=== PATIENT | male | born 1955 | race Caucasian/White ===

== ENCOUNTER 2018-11-20 09:47 | Emergency (ER) | payer MEDICARE, OTHER ==
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
== END 2018-11-20 11:35 | disposition home or self-care (01) ==
LOC: JP.ED 09:47
DX: F41.9 Anxiety disorder, unspecified (principal); E11.9 Type 2 diabetes mellitus without complications; Z88.0 Allergy status to penicillin; Z88.8 Allergy status to other drugs, medicaments and biological substances; Z79.899 Other long term (current) drug therapy; Z87.891 Personal history of nicotine dependence; Z79.84 Long term (current) use of oral hypoglycemic drugs
CPT/HCPCS: 99283

== ENCOUNTER 2020-01-05 15:26 | Observation (INO) | payer MEDICARE, OTHER ==
[2020-01-05] MEDS ORDERED: Sodium Chloride 0.9% 1,000 ML IV SCH ×2 (16:00→16:45)
[2020-01-05] MEDS ORDERED: Insulin Regular, Human 100 Units/ML 3 ML Vial IVPUSH ONE (16:43)
[2020-01-05] MEDS ORDERED: Insulin Regular, Human 100 Units/ML 3 ML Vial SUBCUT ONE (16:44)
--- NOTE | 2020-01-05 16:50 | EDM.PDOC ---
ED HPI GENERAL MEDICAL PROBLEM - General Chief Complaint: General Stated Complaint: BLOOD SUGAR Time Seen by Provider: 01/05/20 15:55 Source of Information: Reports: Patient History Limitations: Reports: No Limitations - History of Present Illness INITIAL COMMENTS - FREE TEXT/NARRATIVE: pt was seen at the clinic and was feeling mildly confused. He was very thirsty. He was found to have a bs greater than 500. He has not been checking his bs. He did not have chest pain. He has had slight burning on urination. Onset: Gradual, Other ( he has felt mildly confused for the past few days. ) Duration: Day(s): Location: Reports: Generalized, Other (markedly elevated bs. ) Associated Symptoms: Reports: Diaphoresis, Weakness, Other (high bs. ) - Related Data Allergies Allergy/AdvReac Type Severity Reaction Status Date / Time haloperidol [From Haldol] Allergy Mild Hyperactivi Verified 11/20/18 10:14 ty Penicillins Allergy Mild Cannot Verified 11/20/18 10:13 Remember Home Meds: Home Meds DULoxetine HCl [Cymbalta] 60 mg PO DAILY 11/20/18 [History] Escitalopram Oxalate 10 mg PO DAILY 11/20/18 [History] Lisinopril 20 mg PO BID 11/20/18 [History] [place] Carbonate 300 mg PO DAILY 11/20/18 [History] OLANZapine [Olanzapine] 2.5 mg PO DAILY 11/20/18 [History] OXcarbazepine [Oxcarbazepine] 150 mg PO BEDTIME 11/20/18 [History] cloNIDine HCL [Clonidine HCl] 0.2 mg PO BEDTIME 01/05/20 [History] metFORMIN HCl [Metformin HCl] 1,000 mg PO BIDAC #60 tablet 01/06/20 [Rx] Past Medical History Cardiovascular History: Reports: High Cholesterol, Hypertension Psychiatric History: Reports: Anxiety, Bipolar, Emotional Problems, Panic Attack Endocrine/Metabolic History: Reports: Diabetes, Type II - Past Surgical History GI Surgical History: Reports: Colonoscopy Social & Family History - Caffeine Use Caffeine Use: Reports: Coffee - Recreational Drug Use Recreational Drug Use: No ED ROS GENERAL - Review of Systems Review Of Systems: See Below Constitutional: Reports: Weakness HEENT: Reports: No Symptoms Respiratory: Reports: No Symptoms Cardiovascular: Reports: No Symptoms Endocrine: Reports: High Glucose GI/Abdominal: Reports: No Symptoms : Reports: Dysuria Musculoskeletal: Reports: No Symptoms Skin: Reports: No Symptoms Neurological: Reports: Confusion Psychiatric: Reports: Depression ED EXAM, GENERAL - Physical Exam Exam: See Below Free Text/Narrative:: pt arrived at the clinic with a elevated bs and he was clearly confused. He has fwlt vague for several days at home he does not take his bs at home. Exam Limited By: No Limitations General Appearance: Alert, Anxious, Other (pt seemes to have a very flat affect. ) Ears: Normal TMs Nose: Normal Inspection Throat/Mouth: Normal Inspection Head: Atraumatic Neck: Normal Inspection Respiratory/Chest: No Respiratory Distress Cardiovascular: Regular Rate, Rhythm GI/Abdominal: Soft, Non-Tender (Male) Exam: Deferred Rectal (Males) Exam: Deferred Back Exam: Normal Inspection Extremities: Normal Inspection Neurological: Alert, Other (pt does seem oriented at this point. ) Psychiatric: Depressed Mood Course - Vital Signs Last Recorded V/S: Last Vital Signs Temp 36.3 C 01/06/20 13:53 Pulse 80 01/06/20 13:53 Resp 18 01/06/20 13:53 BP 150/91 H 01/06/20 13:53 Pulse Ox 99 01/06/20 13:53 - Orders/Labs/Meds Labs: Laboratory Tests 01/05/20 01/05/20 01/05/20 Range/Units 15:55 17:13 17:34 VBG pH 7.400 (7.350-7.450) Hemoglobin A1c 9.6 H (4.5-6.2) % Urine Color Yellow (YELLOW) Urine Appearance Clear (CLEAR) Urine pH 6.5 (5.0-8.0) Ur Specific [place] 1.020 (1.008-1.030) Urine Protein Negative (NEGATIVE) mg/dL Urine Glucose (UA) 500 H (NEGATIVE) mg/dL Urine Ketones Negative (NEGATIVE) mg/dL Urine Occult Blood Trace-intact H (NEGATIVE) Urine Nitrite Negative (NEGATIVE) Urine Bilirubin Negative (NEGATIVE) Urine Urobilinogen 0.2 (0.2-1.0) EU/dL Ur Leukocyte Esterase Negative (NEGATIVE) Urine RBC 0-5 (0-5) Urine WBC Not seen (0-5) Ur Epithelial Cells Not seen Amorphous Sediment Not seen Urine Bacteria Rare Urine Mucus Not seen Meds: Medications Discontinued Medications Generic Name Dose Route Start Last Admin Trade Name Freq PRN Reason Stop Dose Admin Acetaminophen 650 mg 01/05/20 19:22 01/05/20 23:00 Tylenol PO 650 mg Q4H PRN Administration Pain (Mild 1-3)/fever Clonidine HCl 0.2 mg 01/06/20 21:00 Catapres PO BEDTIME TIFFANIE Clonidine HCl 0.2 mg 01/05/20 21:00 01/05/20 21:04 Catapres PO 01/05/20 21:01 0.2 mg BEDTIME ONE Administration Duloxetine HCl 60 mg 01/06/20 09:00 01/06/20 08:23 Cymbalta PO 60 mg DAILY TIFFANIE Administration Escitalopram Oxalate 10 mg 01/06/20 09:00 01/06/20 08:24 Lexapro PO 10 mg DAILY TIFFANIE Administration Sodium Chloride 1,000 mls @ 999 mls/hr 01/05/20 16:00 01/05/20 16:05 Normal Saline IV 999 mls/hr ASDIRECTED TIFFANIE Administration Sodium Chloride 1,000 mls @ 500 mls/hr 01/05/20 16:45 01/05/20 17:13 Normal Saline IV 500 mls/hr ASDIRECTED TIFFANIE Administration Sodium Chloride 1,000 mls @ 125 mls/hr 01/05/20 19:22 01/06/20 03:42 Normal Saline IV 125 mls/hr ASDIRECTED TIFFANIE Administration Insulin Human Lispro 5 unit 01/05/20 18:02 01/05/20 18:24 Humalog SUBCUT 01/05/20 18:03 5 unit ONETIME ONE Administration Insulin Human Lispro 0 unit 01/05/20 20:00 01/06/20 11:22 Humalog SUBCUT 8 units QIDACANDBED TIFFANIE Administration Protocol Insulin Human Regular 3 unit 01/05/20 16:43 01/05/20 16:57 Humulin R IVPUSH 01/05/20 16:44 3 units ONETIME ONE Administration Insulin Human Regular 5 unit 01/05/20 16:44 01/05/20 16:58 Humulin R SUBCUT 01/05/20 16:45 5 units ONETIME ONE Administration Lisinopril 20 mg 01/05/20 21:00 Prinivil PO BID [facility] Lisinopril 20 mg 01/05/20 21:00 01/06/20 08:28 Prinivil PO 20 mg BID TIFFANIE Administration Lisinopril 20 mg 01/06/20 11:22 Prinivil PO BID TIFFANIE [place] Carbonate 300 mg 01/06/20 09:00 01/06/20 08:24 [place] Carbonate PO 300 mg DAILY TIFFANIE Administration Lorazepam 0.5 mg 01/05/20 19:22 Ativan IVPUSH Q4H PRN Nausea/Vomiting Magnesium Hydroxide 30 ml 01/05/20 19:22 Milk Of Magnesia PO Q12H PRN Constipation Metformin HCl 100 mg 01/05/20 21:00 Glucophage PO BID TIFFANIE Metformin HCl 1,000 mg 01/06/20 08:00 01/06/20 08:21 Glucophage PO 1,000 mg BIDMEALS TIFFANIE Administration Metformin HCl 1,000 mg 01/05/20 20:45 01/05/20 21:04 Glucophage PO 01/05/20 20:46 1,000 mg ONETIME ONE Administration Olanzapine 2.5 mg 01/06/20 09:00 01/06/20 08:23 Zyprexa PO 2.5 mg DAILY TIFFANIE Administration Ondansetron HCl 4 mg 01/05/20 19:22 01/06/20 10:27 Zofran Odt PO 4 mg Q6H PRN Administration Nausea able to take PO Ondansetron HCl 4 mg 01/05/20 19:22 Zofran IV Q6H PRN Nausea/Vomiting Oxcarbazepine 150 mg 01/06/20 21:00 Trileptal PO BEDTIME TIFFANIE Oxcarbazepine 150 mg 01/05/20 21:00 01/05/20 21:05 Trileptal PO 01/05/20 21:01 150 mg BEDTIME ONE Administration Senna/Docusate Sodium 1 tab 01/05/20 19:22 Senna Plus PO BID PRN Constipation - Re-Assessments/Exams Free Text/Narrative Re-Assessment/Exam: 01/05/20 17:47 bs was greater thn 500. His venous ph was normal. he has a normal chest xray. His ekg looked ok. He has a clear urine. Pt had a normal crp 01/05/20 17:48 01/08/20 07:12 Departure - Departure Time of Disposition: 17:49 Disposition: Admitted As Inpatient 68 Condition: Fair Clinical Impression: Confusion, Hyperglycemia - Discharge Information Sepsis Event Note - Evaluation Sepsis Screening Result: No Definite Risk - Focused Exam Date Exam was Performed: 01/08/20 Time Exam was Performed: 07:12
--- NOTE | 2020-01-05 17:08 | CRLCR ---
HISTORY: Confusion COMPARISON: From earlier today at 1450 hours FINDINGS: A portable erect AP view of the chest was obtained at 1651 hours. The lungs remain clear. No focal or diffuse infiltrates are present. The heart remains normal in size. The mediastinum is normal in appearance. The osseous structures are normal in appearance for the patient`s age. IMPRESSION: Normal portable chest single view. Dictated by Jose Luna MD @ Jan 05 2020 5:05PM Signed by Dr. Jose Luna @ Jan 05 2020 5:07PM
[2020-01-05 17:49] LABS: HEMOGLOBIN A1C 9.6 % (4.5-6.2)
[2020-01-05] MEDS ORDERED: Insulin Lispro 100 Unit/ML 3 ML KwikPen SUBCUT ONE (18:02)
--- NOTE | 2020-01-05 18:17 | PCM.HP.2 ---
H&P History of Present Illness - General Date of Service: 01/05/20 Admit Problem/Dx: Admission Diagnosis/Problem Admission Diagnosis/Problem Hyperglycemia Source of Information: Patient, Family History Limitations: Reports: No Limitations - History of Present Illness Initial Comments - Free Text/Narative: CC: I wasn't thinking clear HPI: Roel presents to the emergency room today from the clinic where he presented with polydipsia and confusion. He reports that these symptoms have progressed over the past several days to the point that he is not thinking clearly. He has been very thirsty and has been drinking more water than usual. Appetite has been normal. He has not noticed significant polyuria. No fevers , nausea or abdominal pain. Bowels have been moving normally. He does not feel short of breath. He does not have a headache and has not had any trauma. He is not taking any new medications with the exception of clonidine which was started about 3 weeks ago. He does not check his blood sugars at home and has not for some time because things have been fairly well controlled. He does report mild fatigue. Work-up in the clinic revealed a blood sugar greater than 500 so he was sent to the emergency room for further evaluation. He has received 8 units of insulin so far and his blood sugars down to around 330. Venous pH was normal. He will be admitted for management of hyperglycemia. - Related Data Allergies/Adverse Reactions: Allergies Allergy/AdvReac Type Severity Reaction Status Date / Time haloperidol [From Haldol] Allergy Mild Hyperactivi Verified 11/20/18 10:14 ty Penicillins Allergy Mild Cannot Verified 11/20/18 10:13 Remember Home Medications: Home Meds DULoxetine HCl [Cymbalta] 60 mg PO DAILY 11/20/18 [History] Escitalopram Oxalate 10 mg PO DAILY 11/20/18 [History] Lisinopril 20 mg PO BID 11/20/18 [History] [place] Carbonate 300 mg PO DAILY 11/20/18 [History] OLANZapine [Olanzapine] 2.5 mg PO DAILY 11/20/18 [History] OXcarbazepine [Oxcarbazepine] 150 mg PO BEDTIME 11/20/18 [History] metFORMIN HCl [Metformin HCl] 500 mg PO DAILY 11/20/18 [History] cloNIDine HCL [Clonidine HCl] 0.2 mg PO BEDTIME 01/05/20 [History] Past Medical History Cardiovascular History: Reports: High Cholesterol, Hypertension Psychiatric History: Reports: Anxiety, Bipolar, Emotional Problems, Panic Attack Endocrine/Metabolic History: Reports: Diabetes, Type II - Past Surgical History GI Surgical History: Reports: Colonoscopy Social & Family History - Family History Endocrine/Metabolic: Reports: Diabetes, type II - Tobacco Use Smoking Status *Q: Former Smoker Used Tobacco, but Quit: Yes - Caffeine Use Caffeine Use: Reports: Coffee - Alcohol Use Alcohol Use History: Yes Alcohol Use in Last Twelve Months: No Alcohol Use Comment: Quit drinking in his early 30s - Recreational Drug Use Recreational Drug Use: No H&P Review of Systems - Review of Systems: Review Of Systems: See Below Free Text/Narrative: A complete 12 point review of systems was obtained. Pertinent positives and negatives are noted in the history of present illness. All other systems were reviewed and were negative except as noted. Exam - Exam Exam: See Below - Vital Signs Vital Signs: Last Vital Signs Temp 36.7 C 01/05/20 15:55 Pulse 87 01/05/20 15:55 Resp 20 01/05/20 15:55 BP 169/109 H 01/05/20 15:55 Pulse Ox 94 L 01/05/20 15:55 - Exam Quality Assessment: No: Supplemental Oxygen General: Alert, Oriented, Cooperative. No: Mild Distress HEENT: Conjunctiva Clear, Mucosa Moist & [place]. No: Scleral Icterus Neck: Supple, Trachea Midline. No: Lymphadenopathy Lungs: Clear to Auscultation, Normal Respiratory Effort Cardiovascular: Regular Rate, Regular Rhythm GI/Abdominal Exam: Normal Bowel Sounds, Soft, Non-Tender, No Distention Back Exam: Normal Inspection, Full Range of Motion Extremities: No Pedal Edema. No: Increased Warmth Skin: Warm, Dry Neuro Extensive - Mental Status: Alert, Oriented x3, Nl Response to Commands Neuro Extensive - Motor, Sensory, Reflexes: No: Dysarthria, Abnormal Motor, Tremor Psychiatric: Alert, Normal Affect - Patient Data Lab Results Last 24 hrs: Laboratory Results - last 24 hr 01/05/20 01/05/20 01/05/20 Range/Units 15:55 17:13 17:34 VBG pH 7.400 (7.350-7.450) Hemoglobin A1c 9.6 H (4.5-6.2) % Urine Color Yellow (YELLOW) Urine Appearance Clear (CLEAR) Urine pH 6.5 (5.0-8.0) Ur Specific [place] 1.020 (1.008-1.030) Urine Protein Negative (NEGATIVE) mg/dL Urine Glucose (UA) 500 H (NEGATIVE) mg/dL Urine Ketones Negative (NEGATIVE) mg/dL Urine Occult Blood Trace-intact H (NEGATIVE) Urine Nitrite Negative (NEGATIVE) Urine Bilirubin Negative (NEGATIVE) Urine Urobilinogen 0.2 (0.2-1.0) EU/dL Ur Leukocyte Esterase Negative (NEGATIVE) Urine RBC 0-5 (0-5) Urine WBC Not seen (0-5) Ur Epithelial Cells Not seen Amorphous Sediment Not seen Urine Bacteria Rare Urine Mucus Not seen Imaging Impressions Last 24 hrs: CXR - images personally reviewed - lungs clear with no mass, infiltrate or effusion. heart size is normal EKG INTERPRETATION EKG Date: 01/05/20 Rhythm: NSR Rate (Beats/Min): 96 [place]: Normal P-Wave: Present QRS: Normal ST-T: Normal QT: Normal (borderline prolonged) Comparison: NA - No Prior EKG Sepsis Event Note - Evaluation Sepsis Screening Result: No Definite Risk - Focused Exam Vital Signs: Vital Signs Temp Pulse Resp BP Pulse Ox 01/05/20 15:55 36.7 C 87 20 169/109 H 94 L Date Exam was Performed: 01/05/20 Time Exam was Performed: 18:26 *Q Meaningful Use (ADM) - VTE Risk Assess *Q Each Risk Factor Represents 1 Point: Obesity ( BMI > 25 kg/m2) Total Score 1 Point Risk Factors: 1 Each Risk Factor Represents 2 Points: Age 60 - 74 Years Total Score 2 Point Risk Factors: 2 Each Risk Factor Represents 3 Points: None Total Score 3 Point Risk Factors: 0 Each Risk Factor Represents 5 Points: None Total Score 5 Point Risk Factors: 0 Venous Thromboembolism Risk Factor Score *Q: 3 - Problem List (1) Type 2 diabetes mellitus with hyperglycemia SNOMED Code(s): 553045188146859, 120630680558341 ICD Code: E11.65 - TYPE 2 DIABETES MELLITUS WITH HYPERGLYCEMIA Status: Acute Current Visit: Yes Qualifiers: Diabetes mellitus moth exterminator insulin use: without fci use Qualified Code(s): E11.65 - Type 2 diabetes mellitus with hyperglycemia (2) Dehydration SNOMED Code(s): 98486774 ICD Code: E86.0 - DEHYDRATION Status: Acute Current Visit: Yes (3) Confusion SNOMED Code(s): 342409116 ICD Code: R41.0 - DISORIENTATION, UNSPECIFIED Status: Acute Current Visit : Yes Problem List Initiated/Reviewed/Updated: Yes Orders Last 24hrs: Active Orders 24 hr Category Date Time Status Patient Status Manage Transfer [TRANSFER] Routine ADT 01/05/20 18:09 Ordered EKG Documentation Completion [RC] ASDIRECTED Care 01/05/20 15:56 Active Sodium Chloride 0.9% [Normal Saline] 1,000 ml Med 01/05/20 16:00 Active IV ASDIRECTED Sodium Chloride 0.9% [Normal Saline] 1,000 ml Med 01/05/20 16:45 Active IV ASDIRECTED Resuscitation Status Routine Resus Stat 01/05/20 18:10 Ordered EKG 12 Lead [EK] Routine Ther 01/05/20 15:56 Ordered Medication Orders Sodium Chloride (Normal Saline) 1,000 mls @ 999 mls/hr IV ASDIRECTED TIFFANIE Last Admin: 01/05/20 16:05 Dose: 999 mls/hr Sodium Chloride (Normal Saline) 1,000 mls @ 500 mls/hr IV ASDIRECTED TIFFANIE Last Admin: 01/05/20 17:13 Dose: 500 mls/hr Assessment/Plan Comment:: ASSESSMENT AND PLAN - Diabetes mellitus type 2 with hyperglycemia-this likely explains the polyuria as well as the confusion. No evidence for infection at this time. Hemoglobin A1c is 9.6 and he reports that they have previously been around 7. I suspect this is a progression of his insulin resistance. He is on olanzapine and there is the potential that this is contributing as well but his depression symptoms are stable so I am hesitant to alter medications at this time. Blood sugars are improving with subcutaneous insulin. -Increase metformin to 1000 mg twice daily -Sliding scale insulin during the hospital stay -4 times daily Accu-Cheks -Consider second oral agent if blood sugars not optimally controlled -Outpatient follow-up with diabetic education Essential hypertension-blood pressure controlled by history. -Continue home medications of lisinopril and clonidine Maintenance issues - - DVT prophylaxis -mechanical - GI prophylaxis -not indicated - Nutrition -consistent carbohydrates - Ott catheter -not indicated CODE STATUS -full code Admission justification -patient will be referred observation status for management of hyperglycemia and observation with recent confusion Disposition -I would anticipate discharge home after the hospital stay Primary care physician -Dr. Jim Sands M.D. - Mortality Measure Prognosis:: Good
[2020-01-05] MEDS ORDERED: Magnesium Hydroxide 400 MG/5 ML Susp 30 ML Cup PO PRN (19:22)
[2020-01-05] MEDS ORDERED: Ondansetron 4 MG/2 ML SDV IV PRN (19:22)
[2020-01-05] MEDS ORDERED: Acetaminophen 325 MG Tab PO PRN (19:22)
[2020-01-05] MEDS ORDERED: LORazepam 2 MG/ML SDV IVPUSH PRN (19:22)
[2020-01-05] MEDS ORDERED: Ondansetron 4 MG Tab.DIS PO PRN (19:22)
[2020-01-05] MEDS: Sodium Chloride 0.9% 1,000 ML IV SCH (19:39)
[2020-01-05] MEDS ORDERED: metFORMIN 500 MG Tab PO ONE (20:45)
[2020-01-05] MEDS ORDERED: cloNIDine 0.1 MG Tab PO ONE (21:00)
[2020-01-05] MEDS ORDERED: Lisinopril 20 MG Tab PO SCH (21:00)
[2020-01-05] MEDS ORDERED: OXcarbazepine 300 MG Tab PO ONE (21:00)
[2020-01-05] MEDS ORDERED: metFORMIN 500 MG Tab PO SCH (21:00)
[2020-01-05] MEDS: Lisinopril 10 MG Tab PO SCH (21:04)
[2020-01-05] MEDS: Insulin Lispro 100 Unit/ML 3 ML KwikPen SUBCUT SCH (21:09)
[2020-01-06] MEDS: Sodium Chloride 0.9% 1,000 ML IV SCH (03:42)
[2020-01-06] MEDS: Insulin Lispro 100 Unit/ML 3 ML KwikPen SUBCUT SCH ×2 (07:47→11:22)
[2020-01-06] MEDS ORDERED: metFORMIN 500 MG Tab PO SCH (08:00)
[2020-01-06] MEDS: Lisinopril 10 MG Tab PO SCH (08:28)
[2020-01-06] MEDS ORDERED: DULoxetine 30 MG Cap PO SCH (09:00)
[2020-01-06] MEDS ORDERED: Escitalopram 10 MG Tab PO SCH (09:00)
[2020-01-06] MEDS ORDERED: OLANZapine 5 MG Tab PO SCH (09:00)
[2020-01-06] MEDS ORDERED: Lisinopril 20 MG Tab PO SCH (11:22)
--- NOTE | 2020-01-06 14:31 | PCM.DCSUM1 ---
Discharge Summary - Hospital Course Brief History: 64 yr old male with hx of type 2 diabetes mellitus, depression who presented with confusion and hyperglycemia. He was admitted for management of suboptimally controlled diabetes and hydration. Diagnosis: Stroke: No - Discharge Data Discharge Date: 01/06/20 Discharge Disposition: Home, Self-Care 01 Condition: Good - Referral to Home Health Primary Care Physician: Ha Fernandez MD - Discharge Diagnosis/Problem(s) (1) Type 2 diabetes mellitus with hyperglycemia SNOMED Code(s): 471398046727340, 850244949689893 ICD Code: E11.65 - TYPE 2 DIABETES MELLITUS WITH HYPERGLYCEMIA Status: Acute Qualifiers: Diabetes mellitus jail insulin use: without salvage determiner use Qualified Code(s): E11.65 - Type 2 diabetes mellitus with hyperglycemia (2) Dehydration SNOMED Code(s): 89800355 ICD Code: E86.0 - DEHYDRATION Status: Acute (3) Confusion SNOMED Code(s): 877581938 ICD Code: R41.0 - DISORIENTATION, UNSPECIFIED Status: Acute - Patient Summary/Data Hospital Course: Roel presented initially to the clinic with polydipsia and confusion. Laboratory studies at the clinic revealed a blood sugar greater than 500 and dehydration. He was sent to the emergency room for further evaluation. In the emergency room he did have a venous blood gas obtained which showed a normal pH and no evidence for diabetic ketoacidosis. He received a 2 doses of insulin in the emergency room with some improvement in his blood sugar. With the confusion and dehydration we elected to admit him for additional management. I did check a hemoglobin A1c which was 9.5, up from his previously reported levels around 7. Patient has been taking metformin once a day in the evening. He does not report adherence to the diabetic diet and has been consuming a fair amount of sugar. He is not on any new medications. I suspect the recent development of the hyperglycemia is a combination of increasing insulin resistance and increased sugar ingestion. His blood sugars came down nicely with a few doses of supplemental insulin. We did increase his metformin to 1000 mg twice a day. He has confusion has resolved. He is well hydrated at this time. He did tolerate a regular diet. I have provided some information about diabetic diet and eating plan. He would benefit from dietary consultation and additional recommendations regarding a diabetic diet. He does not currently have a meter to check his blood sugars but will be following up with the diabetic educators to discuss obtaining a device. With his hemoglobin A1c of 9.5 he may need a second agent to control his blood sugars but he is stable at this time and safe for discharged home. He is feeling well. He will have early follow-up with both diabetic education and his primary care. - Patient Instructions Diet: Diabetic Diet Activity: As Tolerated Showering/Bathing: May Shower Notify Provider of: Fever, Nausea and/or Vomiting Other/Special Instructions: 1. Increase your metformin to 1000 mg twice daily with breakfast and supper. 2. Follow up with Dr Fernandez in 1-2 weeks to review blood sugars and diabetes management. 3. Follow up with the diabetic educators this week to discuss a glucose monitoring device and dietary recommendations. - Discharge Plan *PRESCRIPTION DRUG MONITORING PROGRAM REVIEWED*: Not Applicable *COPY OF PRESCRIPTION DRUG MONITORING REPORT IN PATIENT MIGUE: Not Applicable Prescriptions/Med Rec: metFORMIN HCl [Metformin HCl] 1,000 mg PO BIDAC #60 tablet Home Medications: Home Meds DULoxetine HCl [Cymbalta] 60 mg PO DAILY 11/20/18 [History] Escitalopram Oxalate 10 mg PO DAILY 11/20/18 [History] Lisinopril 20 mg PO BID 11/20/18 [History] [place] Carbonate 300 mg PO DAILY 11/20/18 [History] OLANZapine [Olanzapine] 2.5 mg PO DAILY 11/20/18 [History] OXcarbazepine [Oxcarbazepine] 150 mg PO BEDTIME 11/20/18 [History] cloNIDine HCL [Clonidine HCl] 0.2 mg PO BEDTIME 01/05/20 [History] metFORMIN HCl [Metformin HCl] 1,000 mg PO BIDAC #60 tablet 01/06/20 [Rx] Oxygen Therapy Mode: Room Air Patient Handouts: Metformin tablets, Carbohydrate Counting for Diabetes Mellitus, Adult, Diabetes Mellitus and Nutrition, Adult Referrals: Ha Fernandez MD [Primary Care Provider] - (1 week - f/u hospital stay for hyperglycemia) - Discharge Summary/Plan Comment DC Time >30 min.: No - Patient Data Vitals - Most Recent: Last Vital Signs Temp 36.3 C 01/06/20 13:53 Pulse 80 01/06/20 13:53 Resp 18 01/06/20 13:53 BP 150/91 H 01/06/20 13:53 Pulse Ox 99 01/06/20 13:53 Weight - Most Recent: 110.223 kg I&O - Last 24 hours: Intake & Output 01/05/20 01/06/20 01/06/20 22:59 06:59 14:59 Intake Total 1570 Balance 1570 Lab Results - Last 24 hrs: Laboratory Results - last 24 hr 01/05/20 01/05/20 01/05/20 Range/Units 15:55 17:13 17:34 WBC (4.5-11.0) K/uL RBC (4.30-5.90) M/uL Hgb (12.0-15.0) g/dL Hct (40.0-54.0) % MCV (80-98) fL MCH (27-31) pg MCHC (32-36) % Plt Count (150-400) K/uL VBG pH 7.400 (7.350-7.450) Sodium (140-148) mmol/L Potassium (3.6-5.2) mmol/L Chloride (100-108) mmol/L Carbon Dioxide (21-32) mmol/L Anion Gap (5.0-14.0) mmol/L BUN (7-18) mg/dL Creatinine (0.8-1.3) mg/dL Est Cr Clr Drug Dosing mL/min Estimated GFR (MDRD) (>60) Glucose (74-106) mg/dL Hemoglobin A1c 9.6 H (4.5-6.2) % Calcium (8.5-10.1) mg/dL TSH, Ultra Sensitive (0.358-3.740) uIU/mL Urine Color Yellow (YELLOW) Urine Appearance Clear (CLEAR) Urine pH 6.5 (5.0-8.0) Ur Specific [place] 1.020 (1.008-1.030) Urine Protein Negative (NEGATIVE) mg/dL Urine Glucose (UA) 500 H (NEGATIVE) mg/dL Urine Ketones Negative (NEGATIVE) mg/dL Urine Occult Blood Trace-intact H (NEGATIVE) Urine Nitrite Negative (NEGATIVE) Urine Bilirubin Negative (NEGATIVE) Urine Urobilinogen 0.2 (0.2-1.0) EU/dL Ur Leukocyte Esterase Negative (NEGATIVE) Urine RBC 0-5 (0-5) Urine WBC Not seen (0-5) Ur Epithelial Cells Not seen Amorphous Sediment Not seen Urine Bacteria Rare Urine Mucus Not seen 01/06/20 01/06/20 Range/Units 05:47 05:47 WBC 8.3 (4.5-11.0) K/uL RBC 4.84 (4.30-5.90) M/uL Hgb 14.8 (12.0-15.0) g/dL Hct 44.7 (40.0-54.0) % MCV 92 (80-98) fL MCH 31 (27-31) pg MCHC 33 (32-36) % Plt Count 239 (150-400) K/uL VBG pH (7.350-7.450) Sodium 135 L (140-148) mmol/L Potassium 4.4 (3.6-5.2) mmol/L Chloride 101 (100-108) mmol/L Carbon Dioxide 28 (21-32) mmol/L Anion Gap 10.4 (5.0-14.0) mmol/L BUN 17 (7-18) mg/dL Creatinine 1.0 (0.8-1.3) mg/dL Est Cr Clr Drug Dosing 84.07 mL/min Estimated GFR (MDRD) > 60 (>60) Glucose 210 H (74-106) mg/dL Hemoglobin A1c (4.5-6.2) % Calcium 8.4 L (8.5-10.1) mg/dL TSH, Ultra Sensitive 2.564 (0.358-3.740) uIU/mL Urine Color (YELLOW) Urine Appearance (CLEAR) Urine pH (5.0-8.0) Ur Specific [place] (1.008-1.030) Urine Protein (NEGATIVE) mg/dL Urine Glucose (UA) (NEGATIVE) mg/dL Urine Ketones (NEGATIVE) mg/dL Urine Occult Blood (NEGATIVE) Urine Nitrite (NEGATIVE) Urine Bilirubin (NEGATIVE) Urine Urobilinogen (0.2-1.0) EU/dL Ur Leukocyte Esterase (NEGATIVE) Urine RBC (0-5) Urine WBC (0-5) Ur Epithelial Cells Amorphous Sediment Urine Bacteria Urine Mucus Med Orders - Current: Current Medications Acetaminophen (Tylenol) 650 mg PO Q4H PRN PRN Reason: Pain (Mild 1-3)/fever Last Admin: 01/05/20 23:00 Dose: 650 mg Clonidine HCl (Catapres) 0.2 mg PO BEDTIME TIFFANIE Duloxetine HCl (Cymbalta) 60 mg PO DAILY TIFFANIE Last Admin: 01/06/20 08:23 Dose: 60 mg Escitalopram Oxalate (Lexapro) 10 mg PO DAILY [facility] Last Admin: 01/06/20 08:24 Dose: 10 mg Insulin Human Lispro (Humalog) 0 unit SUBCUT QIDACANDBED [facility]; Protocol Last Admin: 01/06/20 11:22 Dose: 8 units Lisinopril (Prinivil) 20 mg PO BID [facility] [place] Carbonate ([place] Carbonate) 300 mg PO DAILY [facility] Last Admin: 01/06/20 08:24 Dose: 300 mg Lorazepam (Ativan) 0.5 mg IVPUSH Q4H PRN PRN Reason: Nausea/Vomiting Magnesium Hydroxide (Milk Of Magnesia) 30 ml PO Q12H PRN PRN Reason: Constipation [facility] Admin: 01/06/20 08:21 Dose: 1,000 mg Olanzapine (Zyprexa) 2.5 mg PO DAILY [facility] Last Admin: 01/06/20 08:23 Dose: 2.5 mg Ondansetron HCl (Zofran Odt) 4 mg PO Q6H PRN PRN Reason: Nausea able to take PO Last Admin: 01/06/20 10:27 Dose: 4 mg Ondansetron HCl (Zofran) 4 mg IV Q6H PRN PRN Reason: Nausea/Vomiting Oxcarbazepine (Trileptal) 150 mg PO BEDTIME [facility] Senna/Docusate Sodium (Senna Plus) 1 tab PO BID PRN PRN Reason: Constipation Discontinued Medications Clonidine HCl (Catapres) 0.2 mg PO BEDTIME ONE Stop: 01/05/20 21:01 Last Admin: 01/05/20 21:04 Dose: 0.2 mg Sodium Chloride (Normal Saline) 1,000 mls @ 999 mls/hr IV ASDIRECTED [facility] Last Admin: 01/05/20 16:05 Dose: 999 mls/hr Sodium Chloride (Normal Saline) 1,000 mls @ 500 mls/hr IV ASDIRECTED [facility] Last Admin: 01/05/20 17:13 Dose: 500 mls/hr Sodium Chloride (Normal Saline) 1,000 mls @ 125 mls/hr IV ASDIRECTED [facility] Last Admin: 01/06/20 03:42 Dose: 125 mls/hr Insulin Human Lispro (Humalog) 5 unit SUBCUT ONETIME ONE Stop: 01/05/20 18:03 Last Admin: 01/05/20 18:24 Dose: 5 unit Insulin Human Regular (Humulin R) 3 unit IVPUSH ONETIME ONE Stop: 01/05/20 16:44 Last Admin: 01/05/20 16:57 Dose: 3 units Insulin Human Regular (Humulin R) 5 unit SUBCUT ONETIME ONE Stop: 01/05/20 16:45 Last Admin: 01/05/20 16:58 Dose: 5 units Lisinopril (Prinivil) 20 mg PO BID TIFFANIE Lisinopril (Prinivil) 20 mg PO BID TIFFANIE Last Admin: 01/06/20 08:28 Dose: 20 mg Metformin HCl (Glucophage) 100 mg PO BID TIFFANIE Metformin HCl (Glucophage) 1,000 mg PO ONETIME ONE Stop: 01/05/20 20:46 Last Admin: 01/05/20 21:04 Dose: 1,000 mg Oxcarbazepine (Trileptal) 150 mg PO BEDTIME ONE Stop: 01/05/20 21:01 Last Admin: 01/05/20 21:05 Dose: 150 mg - Exam Quality Assessment: Denies: Supplemental Oxygen General: Reports: Alert, Oriented, Cooperative, No Acute Distress Lungs: Reports: Normal Respiratory Effort Cardiovascular: Reports: Regular Rate, Regular Rhythm GI/Abdominal Exam: Soft, No Distention Extremities: No Pedal Edema Psy/Mental Status: Reports: Alert, Normal Affect
[2020-01-06] MEDS ORDERED: cloNIDine 0.1 MG Tab PO SCH (21:00)
[2020-01-06] MEDS ORDERED: OXcarbazepine 300 MG Tab PO SCH (21:00)
== END 2020-01-06 15:05 | disposition home or self-care (01) ==
LOC: JP.ED 15:26 → JP.ICU 18:09
PROVIDERS: ADMIT Internal Medicine; ATTEND Internal Medicine
DX: E11.65 Type 2 diabetes mellitus with hyperglycemia (principal); E86.0 Dehydration; I10 Essential (primary) hypertension; F41.9 Anxiety disorder, unspecified; F31.9 Bipolar disorder, unspecified; Z87.891 Personal history of nicotine dependence; Z79.84 Long term (current) use of oral hypoglycemic drugs; Z79.899 Other long term (current) drug therapy; Z88.0 Allergy status to penicillin; Z88.8 Allergy status to other drugs, medicaments and biological substances
CPT/HCPCS: 36415; 71045; 80048; 81001; 82800; 82962; 83036; 84443; 85027; 93005; 96360; 96361; 99285; A9270; J1815; J7030; 99217; 99218; G0378

== ENCOUNTER 2022-01-06 14:01 | Emergency (ER) | payer MEDICARE, OTHER | END 2022-01-06 16:34 | disposition left against medical advice (07) | LOC: JP.ED 14:01 | DX: Z53.21 Procedure and treatment not carried out due to patient leaving prior to being seen by health care provider (principal) | CPT/HCPCS: 93010 ==

== ENCOUNTER 2022-05-30 10:11 | Emergency (ER) | payer MEDICARE, OTHER ==
[2022-05-30] MEDS ORDERED: Iopamidol 755 Mg/ML 100 ML Bottle IV SCH (12:45)
[2022-05-30] MEDS ORDERED: Sodium Chloride 0.9% 10 ML Syringe FLUSH ONE (12:45)
[2022-05-30] MEDS ORDERED: Sodium Chloride 0.9% 50 ML IV SCH (12:45)
== END 2022-05-30 15:17 | disposition home or self-care (01) ==
LOC: JP.ED 10:11
DX: R06.02 Shortness of breath (principal); E78.00 Pure hypercholesterolemia, unspecified; I10 Essential (primary) hypertension; E11.9 Type 2 diabetes mellitus without complications; Z88.0 Allergy status to penicillin; Z88.5 Allergy status to narcotic agent; Z88.8 Allergy status to other drugs, medicaments and biological substances; Z79.4 Long term (current) use of insulin; Z79.899 Other long term (current) drug therapy; Z20.822 Contact with and (suspected) exposure to COVID-19
CPT/HCPCS: 36415; 71046; 71275; 80048; 85025; 85379; 99285; J3490; Q9967; U0002; 99284

== ENCOUNTER 2022-05-31 21:10 | Inpatient (IN) | payer MEDICARE, OTHER ==
[2022-05-31] MEDS ORDERED: Ondansetron 4 MG/2 ML SDV IVPUSH ONE (21:27)
[2022-05-31] MEDS ORDERED: Pantoprazole 40 MG Vial IVPUSH SCH (21:30)
[2022-05-31] MEDS ORDERED: Albuterol/Ipratropium 3.0-0.5 MG/3 ML Neb Soln NEB ONE (22:04)
[2022-05-31 22:06] LABS: ESTIMATED GFR 51 mL/min (>60); TROPONIN I HIGH SENSITIVITY 56.2 pg/mL (<=60.3)
[2022-05-31] MEDS ORDERED: Calcium Gluconate 10% 1 GM/10 ML SDV IVPUSH ONE (22:20)
[2022-05-31] MEDS ORDERED: Acetaminophen Soln 650 MG/20.3 ML UD Cup PO ONE (22:46)
[2022-05-31] MEDS ORDERED: Magnesium Sulfate/Water 2 GM in Premix Bag 1 BAG IV ONE (23:02)
[2022-05-31] MEDS ORDERED: Cefepime 1 GM in Sodium Chloride 0.9% 50 ML IV SCH (23:30)
[2022-05-31] MEDS ORDERED: Furosemide 40 MG/4 ML VIAL IVPUSH ONE (23:51)
[2022-06-01] MEDS ORDERED: 50% Dextrose in Water 50 ML Syringe IVPUSH PRN ×2 (01:00→15:57)
[2022-06-01] MEDS ORDERED: Glucagon,Human Recombinant 1 MG Vial IM PRN ×2 (01:00→15:57)
[2022-06-01] MEDS: Insulin Glargine,Human Rec. Analog 100 Units/ML 3 ML Pen SUBCUT SCH ×3 (01:25→20:38)
[2022-06-01 05:31] LABS: ESTIMATED GFR 51 mL/min (>60)
[2022-06-01] MEDS ORDERED: Lithium Carbonate 300 MG Tab.ER PO ONE (07:00)
[2022-06-01] MEDS: Albuterol/Ipratropium 3.0-0.5 MG/3 ML Neb Soln NEB PRN ×3 (07:16→23:45)
[2022-06-01] MEDS ORDERED: Acetaminophen 500 MG Tab PO ONE (07:28)
[2022-06-01] MEDS ORDERED: methylPREDNISolone Sodium Succinate 125 MG/2 ML SDV IVPUSH ONE (07:29)
[2022-06-01] MEDS ORDERED: Albuterol/Ipratropium 3.0-0.5 MG/3 ML Neb Soln NEB PRN (11:49)
[2022-06-01] MEDS ORDERED: LORazepam 2 MG/ML SDV IVPUSH PRN (11:49)
[2022-06-01] MEDS ORDERED: Magnesium Hydroxide 400 MG/5 ML Susp 30 ML Cup PO PRN (11:49)
[2022-06-01] MEDS ORDERED: Acetaminophen/HYDROcodone 325-5 MG Tab PO PRN (11:49)
[2022-06-01] MEDS ORDERED: Acetaminophen 325 MG Tab PO PRN (11:49)
[2022-06-01] MEDS ORDERED: Ondansetron 4 MG Tab.DIS PO PRN (11:49)
[2022-06-01] MEDS ORDERED: Insulin Lispro 100 Unit/ML 3 ML KwikPen SUBCUT SCH (12:15)
[2022-06-01 12:19] LABS: HEMOGLOBIN A1C 8.7 % (4.5-6.2)
[2022-06-01] MEDS: Sodium Chloride 0.9% 1,000 ML IV SCH (13:29)
[2022-06-01] MEDS ORDERED: Enoxaparin 40 MG/0.4 ML Syringe SUBCUT SCH (14:00)
[2022-06-01] MEDS ORDERED: hydrALAZINE 20 MG/ML SDV IVPUSH PRN (14:47)
[2022-06-01] MEDS ORDERED: Codeine/guaiFENesin 10-100 MG/5 ML Syrup 5 ML Cup PO PRN (15:15)
[2022-06-01] MEDS: methylPREDNISolone Sodium Succinate 40 MG/1 ML SDV IVPUSH SCH (15:17)
[2022-06-01] MEDS: Doxycycline 100 MG in Sodium Chloride 0.9% 100 ML IV SCH (15:41)
[2022-06-01] MEDS: DULoxetine 30 MG Cap PO SCH (16:18)
[2022-06-01] MEDS ORDERED: Insulin Lispro 100 Units/ML 3 ML Vial SUBCUT ONE (17:45)
[2022-06-01] MEDS: LORazepam 0.5 MG Tab PO SCH (20:37)
[2022-06-01] MEDS: cloNIDine 0.1 MG Tab PO SCH (20:37)
[2022-06-01] MEDS: OXcarbazepine 300 MG Tab PO SCH (20:37)
[2022-06-01] MEDS: atorvaSTATin 10 MG Tab PO SCH (20:38)
[2022-06-01] MEDS: guaiFENesin 600 MG Tab.ER PO SCH (20:39)
[2022-06-01] MEDS ORDERED: Insulin Glargine,Human Rec. Analog 100 Units/ML 3 ML Pen SUBCUT SCH (21:00)
[2022-06-01] MEDS: Insulin Lispro 100 Unit/ML 3 ML KwikPen SUBCUT SCH (21:31)
[2022-06-02] MEDS: Doxycycline 100 MG in Sodium Chloride 0.9% 100 ML IV SCH ×2 (03:25→15:45)
[2022-06-02] MEDS: methylPREDNISolone Sodium Succinate 40 MG/1 ML SDV IVPUSH SCH ×2 (03:25→15:45)
[2022-06-02 05:15] LABS: TROPONIN I HIGH SENSITIVITY 31.8 pg/mL (<=60.3)
[2022-06-02 05:19] LABS: ESTIMATED GFR 56 mL/min (>60)
[2022-06-02] MEDS: Sodium Chloride 0.9% 1,000 ML IV SCH (05:58)
[2022-06-02] MEDS: Insulin Lispro 100 Unit/ML 3 ML KwikPen SUBCUT SCH ×4 (07:34→21:12)
[2022-06-02] MEDS: Pantoprazole 40 MG Tab.CR PO SCH (07:34)
[2022-06-02] MEDS ORDERED: Non-Formulary Medication 1 Each (Duloxetine Hcl [Cymbalta] 60 MG Capsule.Dr) PO SCH (09:00)
[2022-06-02] MEDS: OLANZapine 5 MG Tab PO SCH (09:29)
[2022-06-02] MEDS: Escitalopram 10 MG Tab PO SCH (09:29)
[2022-06-02] MEDS: guaiFENesin 600 MG Tab.ER PO SCH ×2 (09:29→21:07)
[2022-06-02] MEDS: DULoxetine 30 MG Cap PO SCH (09:29)
[2022-06-02] MEDS: LORazepam 0.5 MG Tab PO SCH ×2 (09:31→21:06)
[2022-06-02] MEDS ORDERED: Bisacodyl 10 MG Supp RECTAL PRN (12:03)
[2022-06-02] MEDS ORDERED: Docusate Sodium 100 MG Cap PO PRN (12:03)
[2022-06-02] MEDS: Furosemide 20 MG/2 ML VIAL IVPUSH SCH (12:24)
[2022-06-02] MEDS: Albuterol/Ipratropium 3.0-0.5 MG/3 ML Neb Soln NEB PRN ×2 (15:45→22:32)
[2022-06-02] MEDS: OXcarbazepine 300 MG Tab PO SCH (21:07)
[2022-06-02] MEDS: cloNIDine 0.1 MG Tab PO SCH (21:08)
[2022-06-02] MEDS: atorvaSTATin 10 MG Tab PO SCH (21:09)
[2022-06-02] MEDS: Insulin Glargine,Human Rec. Analog 100 Units/ML 3 ML Pen SUBCUT SCH (21:13)
[2022-06-03] MEDS: methylPREDNISolone Sodium Succinate 40 MG/1 ML SDV IVPUSH SCH (02:33)
[2022-06-03] MEDS: Doxycycline 100 MG in Sodium Chloride 0.9% 100 ML IV SCH (02:34)
[2022-06-03 05:25] LABS: ESTIMATED GFR 67 mL/min (>60)
[2022-06-03] MEDS: Insulin Lispro 100 Unit/ML 3 ML KwikPen SUBCUT SCH ×4 (08:03→21:20)
[2022-06-03] MEDS: Pantoprazole 40 MG Tab.CR PO SCH (08:04)
[2022-06-03] MEDS: Escitalopram 10 MG Tab PO SCH (09:10)
[2022-06-03] MEDS: LORazepam 0.5 MG Tab PO SCH ×2 (09:10→20:07)
[2022-06-03] MEDS: guaiFENesin 600 MG Tab.ER PO SCH ×2 (09:10→20:08)
[2022-06-03] MEDS: DULoxetine 30 MG Cap PO SCH (09:10)
[2022-06-03] MEDS: OLANZapine 5 MG Tab PO SCH (09:10)
[2022-06-03] MEDS: Furosemide 20 MG/2 ML VIAL IVPUSH SCH (09:11)
[2022-06-03] MEDS ORDERED: Albuterol 8 GM Inhaler INH PRN (10:08)
[2022-06-03] MEDS ORDERED: Furosemide 40 MG/4 ML VIAL IVPUSH ONE (16:00)
[2022-06-03] MEDS: cloNIDine 0.1 MG Tab PO SCH (20:07)
[2022-06-03] MEDS: Doxycycline 100 MG Cap PO SCH (20:08)
[2022-06-03] MEDS: atorvaSTATin 10 MG Tab PO SCH (20:09)
[2022-06-03] MEDS: OXcarbazepine 300 MG Tab PO SCH (20:09)
[2022-06-03] MEDS: Insulin Glargine,Human Rec. Analog 100 Units/ML 3 ML Pen SUBCUT SCH (21:20)
[2022-06-04] MEDS: Insulin Lispro 100 Unit/ML 3 ML KwikPen SUBCUT SCH ×4 (07:45→21:48)
[2022-06-04] MEDS: Pantoprazole 40 MG Tab.CR PO SCH (07:46)
[2022-06-04] MEDS ORDERED: Furosemide 40 MG/4 ML VIAL IVPUSH SCH (08:00)
[2022-06-04] MEDS: LORazepam 0.5 MG Tab PO SCH ×2 (08:07→20:15)
[2022-06-04] MEDS: guaiFENesin 600 MG Tab.ER PO SCH ×2 (08:07→20:10)
[2022-06-04] MEDS: OLANZapine 5 MG Tab PO SCH (08:07)
[2022-06-04] MEDS: Doxycycline 100 MG Cap PO SCH (08:07)
[2022-06-04] MEDS: Escitalopram 10 MG Tab PO SCH (08:07)
[2022-06-04] MEDS: DULoxetine 30 MG Cap PO SCH (08:08)
[2022-06-04] MEDS ORDERED: Potassium Chloride 20 MEQ Tab.ER PO ONE (09:00)
[2022-06-04] MEDS ORDERED: Furosemide 20 MG/2 ML VIAL IVPUSH ONE (15:00)
[2022-06-04] MEDS: cefTRIAXone 2 GM in Sodium Chloride 0.9% 50 ML IV SCH (15:30)
[2022-06-04] MEDS: Azithromycin 250 MG Tab PO SCH (15:30)
[2022-06-04] MEDS: OXcarbazepine 300 MG Tab PO SCH (20:10)
[2022-06-04] MEDS: atorvaSTATin 10 MG Tab PO SCH (20:11)
[2022-06-04] MEDS: cloNIDine 0.1 MG Tab PO SCH (20:12)
[2022-06-04] MEDS: Insulin Glargine,Human Rec. Analog 100 Units/ML 3 ML Pen SUBCUT SCH (21:49)
[2022-06-05 05:19] LABS: ESTIMATED GFR 75 mL/min (>60)
[2022-06-05] MEDS: Insulin Lispro 100 Unit/ML 3 ML KwikPen SUBCUT SCH ×4 (07:41→21:20)
[2022-06-05] MEDS: Pantoprazole 40 MG Tab.CR PO SCH (07:44)
[2022-06-05] MEDS: Furosemide 20 MG/2 ML VIAL IVPUSH SCH (07:45)
[2022-06-05] MEDS: Escitalopram 10 MG Tab PO SCH (08:00)
[2022-06-05] MEDS: Lisinopril 20 MG Tab PO SCH (08:00)
[2022-06-05] MEDS: DULoxetine 30 MG Cap PO SCH (08:00)
[2022-06-05] MEDS: OLANZapine 5 MG Tab PO SCH (08:00)
[2022-06-05] MEDS: guaiFENesin 600 MG Tab.ER PO SCH ×2 (08:00→21:18)
[2022-06-05] MEDS: LORazepam 0.5 MG Tab PO SCH (08:00)
[2022-06-05] MEDS ORDERED: LORazepam 0.5 MG Tab PO PRN (08:50)
[2022-06-05] MEDS ORDERED: Metoprolol Succinate 25 MG Tab.ER PO ONE (13:45)
[2022-06-05] MEDS: Azithromycin 250 MG Tab PO SCH (14:51)
[2022-06-05] MEDS: cefTRIAXone 2 GM in Sodium Chloride 0.9% 50 ML IV SCH (15:30)
[2022-06-05] MEDS: cloNIDine 0.1 MG Tab PO SCH (21:18)
[2022-06-05] MEDS: OXcarbazepine 300 MG Tab PO SCH (21:19)
[2022-06-05] MEDS: atorvaSTATin 10 MG Tab PO SCH (21:19)
[2022-06-05] MEDS: Insulin Glargine,Human Rec. Analog 100 Units/ML 3 ML Pen SUBCUT SCH (21:21)
[2022-06-06] MEDS ORDERED: metFORMIN 500 MG Tab PO SCH (07:30)
[2022-06-06] MEDS: Pantoprazole 40 MG Tab.CR PO SCH (08:22)
[2022-06-06] MEDS: Insulin Lispro 100 Unit/ML 3 ML KwikPen SUBCUT SCH (08:23)
[2022-06-06] MEDS: Furosemide 20 MG/2 ML VIAL IVPUSH SCH (08:24)
[2022-06-06] MEDS ORDERED: Metoprolol Succinate 25 MG Tab.ER PO SCH (09:00)
[2022-06-06] MEDS: Escitalopram 10 MG Tab PO SCH (09:32)
[2022-06-06] MEDS: DULoxetine 30 MG Cap PO SCH (09:32)
[2022-06-06] MEDS: OLANZapine 5 MG Tab PO SCH (09:33)
[2022-06-06] MEDS: Lisinopril 20 MG Tab PO SCH (09:33)
[2022-06-06] MEDS: guaiFENesin 600 MG Tab.ER PO SCH (09:33)
== END 2022-06-06 11:30 | disposition home or self-care (01) | DRG 291 ==
LOC: JP.ED 21:10 → JP.MS 06-01 10:51
PROVIDERS: ADMIT Hospitalist; ATTEND Internal Medicine
DX: A41.9 Sepsis, unspecified organism (principal); I13.0 Hypertensive heart and chronic kidney disease with heart failure and stage 1 through stage 4 chronic kidney disease, or unspecified chronic kidney disease; J96.02 Acute respiratory failure with hypercapnia; I50.41 Acute combined systolic (congestive) and diastolic (congestive) heart failure; J96.01 Acute respiratory failure with hypoxia; R74.01 Elevation of levels of liver transaminase levels; I50.9 Heart failure, unspecified; E87.1 Hypo-osmolality and hyponatremia; Z20.822 Contact with and (suspected) exposure to COVID-19; I11.0 Hypertensive heart disease with heart failure; E11.65 Type 2 diabetes mellitus with hyperglycemia; Z88.1 Allergy status to other antibiotic agents; F31.9 Bipolar disorder, unspecified; E78.00 Pure hypercholesterolemia, unspecified; F41.0 Panic disorder [episodic paroxysmal anxiety]; N18.30 Chronic kidney disease, stage 3 unspecified; E83.51 Hypocalcemia; J20.9 Acute bronchitis, unspecified; Z88.0 Allergy status to penicillin; Z88.8 Allergy status to other drugs, medicaments and biological substances; Z79.84 Long term (current) use of oral hypoglycemic drugs; Z79.51 Long term (current) use of inhaled steroids; Z87.891 Personal history of nicotine dependence; Z79.4 Long term (current) use of insulin; Z79.899 Other long term (current) drug therapy
CPT/HCPCS: 36415 ×2; 36600; 71045 ×2; 74018 ×2; 80053 ×2; 81001; 82803; 82947; 83605 ×2; 83735 ×2; 83880; 84145; 84484 ×2; 85025 ×2; 87040; 87086; 87804 ×2; 93005; 94640 ×2; 96365; 96366; 96367; 96368; 96375 ×2; 99285; A9270 ×2; C9113; J0610; J0692; J1815; J1940; J2405; J2930; J3370; J3475; J7050; U0002; 80048; 80178; 82272; 83036; 85027; 85651; 86140; 93010; 97110-GP; 97162-GP; 97530-GP; 99222; 99232; 99239; C8929; J0696; J1650; J2920; J3490; J7030; J7620

== ENCOUNTER 2023-06-04 07:09 | Inpatient (IN) | payer MEDICARE, OTHER ==
[2023-06-04 07:56] LABS: BASOPHILS ABSOLUTE AUTO 0.03 K/uL (0.00-0.10); BASOPHILS PERCENT AUTO 0.3 % (0.1-1.3); EOSINOPHILS PERCENT AUTO 0.1 % (0.0-5.4); HEMATOCRIT 43.4 % (38.4-49.7); HEMOGLOBIN 15.2 g/dL (12.9-16.9); IMMATURE GRAN ABSOLUTE AUTO 0.03 K/uL (0.00-0.23); IMMATURE GRAN PERCENT AUTO 0.3 % (0.0-0.7); LYMPHOCYTES ABSOLUTE AUTO 0.56 K/uL (0.8-3.3); LYMPHOCYTES PERCENT AUTO 6.4 % (11.4-47.7); MEAN CORPUSCULAR HEMOGLOBIN 31.6 pg (31.6-35.5); MEAN CORPUSCULAR VOLUME 90.2 fL (81.4-99.0); MONOCYTES ABSOLUTE AUTO 0.76 K/uL (0.20-0.90); MONOCYTES PERCENT AUTO 8.7 % (3.3-12.6); NEUTROPHILS ABSOLUTE AUTO 7.33 K/uL (1.0-7.6); NEUTROPHILS PERCENT AUTO 84.2 % (40.0-78.1); PLATELET COUNT,PLT 143 K/uL (130-375); RED BLOOD CELL COUNT 4.81 M/uL (4.14-5.76); WHITE BLOOD CELL COUNT,WBC 8.7 K/uL (3.2-11.0)
[2023-06-04 08:00] LABS: EOSINOPHILS ABSOLUTE AUTO 0.01 K/uL (0.00-0.40)
[2023-06-04 08:24] LABS: A/G RATIO 0.8 (1.2-2.2); ALANINE AMINOTRANSFERASE,ALT 44 U/L (12-78); ALBUMIN 3.1 g/dL (3.4-5.0); ALKALINE PHOSPHATASE 99 U/L (46-116); ANION GAP 13.1 mmol/L (5.0-14.0); ASPARTATE AMNIOTRANSFERASE,AST 28 U/L (15-37); BILIRUBIN TOTAL 1.7 mg/dL (0.2-1.0); BLOOD UREA NITROGEN,BUN 15 mg/dL (7-18); C-REACTIVE PROTEIN 9.03 mg/dL (0.0-0.3); CALCIUM 8.6 mg/dL (8.5-10.1); CARBON DIOXIDE,CO2 26 mmol/L (21-32); CHLORIDE,CL 94 mmol/L (100-108); CREATININE 1.2 mg/dL (0.8-1.3); EST CRCL DRUG DOSING (CG) 66.46 mL/min; ESTIMATED GFR 67 mL/min (>60); GLUCOSE RANDOM 229 mg/dL (74-106); POTASSIUM,K 4.1 mmol/L (3.6-5.2); PRO B-TYPE NATRIUR PEPT,BNPPRO 1303 pg/mL (5-125); PROTEIN TOTAL,TP 6.9 g/dL (6.4-8.2); SODIUM,NA 129 mmol/L (140-148); TROPONIN I HIGH SENSITIVITY 26.9 pg/mL (<=60.3)
[2023-06-04 09:44] LABS: APPEARANCE,URINE CLEAR (CLEAR); BILIRUBIN,URINE NEGATIVE (NEGATIVE); COLOR,URINE YELLOW (YELLOW); GLUCOSE,URINE NEGATIVE (NEGATIVE); KETONES,URINE TRACE mg/dL (NEGATIVE); LEUKOCYTE ESTERASE,URINE NEGATIVE (NEGATIVE); NITRITE,URINE NEGATIVE (NEGATIVE); OCCULT BLOOD,URINE SMALL (NEGATIVE); PROTEIN,URINE 100 mg/dL (NEGATIVE); UROBILINOGEN,URINE 0.2 EU/dL (0.2-1.0)
[2023-06-04 09:50] LABS: AMORPHOUS SEDIMENT,URINE RARE; BACTERIA,URINE NOT SEEN; EPITHELIAL CELLS,URINE NOT SEEN; MUCUS,URINE NOT SEEN; RBC,URINE NOT SEEN (0-5); WBC,URINE NOT SEEN (0-5)
[2023-06-04] MEDS ORDERED: Sodium Chloride 0.9% 10 ML Syringe FLUSH PRN (10:14)
[2023-06-04] MEDS ORDERED: Sodium Chloride 0.9% 75 ML IV ONE (10:14)
[2023-06-04] MEDS ORDERED: Iopamidol 755 Mg/ML 100 ML Bottle IV SCH (10:15)
[2023-06-04] MEDS ORDERED: Furosemide 40 MG/4 ML VIAL IVPUSH ONE (12:00)
[2023-06-04] MEDS: Sodium Chloride 0.9% 10 ML Syringe FLUSH PRN ×2 (12:17→19:37)
[2023-06-04] MEDS ORDERED: predniSONE 20 MG Tab PO ONE (13:47)
[2023-06-04] MEDS ORDERED: Azithromycin 250 MG Tab PO ONE (13:47)
[2023-06-04] MEDS ORDERED: Sennosides/Docusate Sodium 50-8.6 MG Tab PO PRN (15:40)
[2023-06-04] MEDS ORDERED: Ondansetron 4 MG/2 ML SDV IV PRN (15:40)
[2023-06-04] MEDS ORDERED: Magnesium Hydroxide 400 MG/5 ML Susp 30 ML Cup PO PRN (15:40)
[2023-06-04] MEDS ORDERED: Ondansetron 4 MG Tab.DIS PO PRN (15:40)
[2023-06-04] MEDS ORDERED: Aspirin 81 MG Tab.Chew PO ONE (16:00)
[2023-06-04] MEDS ORDERED: cefTRIAXone 1 GM in Sodium Chloride 0.9% 50 ML IV SCH (16:00)
[2023-06-04] MEDS: Insulin Lispro 100 Unit/ML 3 ML KwikPen SUBCUT SCH ×2 (17:17→21:52)
[2023-06-04] MEDS: Enoxaparin 40 MG/0.4 ML Syringe SUBCUT SCH (17:17)
[2023-06-04] MEDS: metFORMIN 500 MG Tab PO SCH (17:17)
[2023-06-04] MEDS: Albuterol/Ipratropium 3.0-0.5 MG/3 ML Neb Soln NEB SCH ×2 (17:22→21:48)
[2023-06-04] MEDS: Albuterol 0.083% 2.5 MG/3 ML Neb Soln NEB PRN (19:35)
[2023-06-04] MEDS ORDERED: Non-Formulary Medication 1 Each (Metformin Hcl [Metformin Hcl] 1,000 MG Tablet) PO SCH (21:00)
[2023-06-04] MEDS ORDERED: OXCARBAZEPINE 150 MG PO SCH (21:00)
[2023-06-04] MEDS: LORazepam 0.5 MG Tab PO PRN (21:48)
[2023-06-04] MEDS: Lactobacillus Rhamnosus GG (Probiotic) Cap PO SCH (21:49)
[2023-06-04] MEDS: OXcarbazepine 300 MG Tab PO SCH (21:50)
[2023-06-04] MEDS: Sacubitril/Valsartan 24 MG-26 MG Tab PO SCH (21:50)
[2023-06-04] MEDS: atorvaSTATin 10 MG Tab PO SCH (21:50)
[2023-06-04] MEDS: Insulin Glargine,Human Rec. Analog 100 Units/ML 3 ML Pen SUBCUT SCH (21:53)
[2023-06-05 04:34] LABS: HEMATOCRIT 41.3 % (38.4-49.7); HEMOGLOBIN 14.5 g/dL (12.9-16.9); MEAN CORPUSCULAR HEMOGLOBIN 31.7 pg (31.6-35.5); MEAN CORPUSCULAR HGB CONC 35.1 g/dL (31.6-35.5); MEAN CORPUSCULAR VOLUME 90.4 fL (81.4-99.0); RED BLOOD CELL COUNT 4.57 M/uL (4.14-5.76); WHITE BLOOD CELL COUNT,WBC 8.3 K/uL (3.2-11.0)
[2023-06-05 04:56] LABS: CALCIUM 8.7 mg/dL (8.5-10.1); CREATININE 1.4 mg/dL (0.8-1.3); EST CRCL DRUG DOSING (CG) 56.97 mL/min; POTASSIUM,K 4.4 mmol/L (3.6-5.2)
[2023-06-05] MEDS: Acetaminophen 325 MG Tab PO PRN ×2 (05:16→22:33)
[2023-06-05 05:17] LABS: ANION GAP 10.4 mmol/L (5.0-14.0)
[2023-06-05] MEDS: DULoxetine 30 MG Cap PO SCH ×2 (06:33→09:11)
[2023-06-05] MEDS: Albuterol/Ipratropium 3.0-0.5 MG/3 ML Neb Soln NEB SCH ×4 (07:14→21:01)
[2023-06-05] MEDS ORDERED: Metoprolol Succinate 25 MG Tab.ER PO SCH ×2 (09:00)
[2023-06-05] MEDS ORDERED: Non-Formulary Medication 1 Each (Duloxetine Hcl [Cymbalta] 60 MG Capsule.Dr) PO SCH (09:00)
[2023-06-05] MEDS ORDERED: Furosemide 40 MG Tab PO SCH (09:00)
[2023-06-05] MEDS ORDERED: Azithromycin 250 MG Tab PO SCH ×2 (09:00→12:00)
[2023-06-05] MEDS ORDERED: OLANZAPINE 2.5 MG PO SCH (09:00)
[2023-06-05] MEDS: Insulin Lispro 100 Unit/ML 3 ML KwikPen SUBCUT SCH ×4 (09:07→21:02)
[2023-06-05] MEDS: Lactobacillus Rhamnosus GG (Probiotic) Cap PO SCH ×2 (09:08→20:58)
[2023-06-05] MEDS: Furosemide 20 MG Tab PO SCH (09:08)
[2023-06-05] MEDS: predniSONE 20 MG Tab PO SCH (09:08)
[2023-06-05] MEDS: metFORMIN 500 MG Tab PO SCH ×2 (09:10→17:54)
[2023-06-05] MEDS: Escitalopram 10 MG Tab PO SCH (09:11)
[2023-06-05] MEDS: OLANZapine 5 MG Tab PO SCH (09:12)
[2023-06-05] MEDS: Sacubitril/Valsartan 24 MG-26 MG Tab PO SCH ×3 (09:37→20:58)
[2023-06-05] MEDS: Metoprolol Succinate 25 MG Tab.ER PO SCH (09:37)
[2023-06-05] MEDS: Aspirin 81 MG Tab.Chew PO SCH (14:27)
[2023-06-05] MEDS: Enoxaparin 40 MG/0.4 ML Syringe SUBCUT SCH (17:54)
[2023-06-05] MEDS: Cefdinir 300 MG Cap PO SCH (20:58)
[2023-06-05] MEDS: atorvaSTATin 10 MG Tab PO SCH (20:58)
[2023-06-05] MEDS: OXcarbazepine 300 MG Tab PO SCH (20:59)
[2023-06-05] MEDS: Insulin Glargine,Human Rec. Analog 100 Units/ML 3 ML Pen SUBCUT SCH (21:02)
[2023-06-06] MEDS: LORazepam 0.5 MG Tab PO PRN (00:25)
[2023-06-06] MEDS: Acetaminophen 325 MG Tab PO PRN (03:36)
[2023-06-06] MEDS: Albuterol 0.083% 2.5 MG/3 ML Neb Soln NEB PRN (03:37)
[2023-06-06 04:39] LABS: HEMATOCRIT 40.2 % (38.4-49.7); HEMOGLOBIN 14.2 g/dL (12.9-16.9); MEAN CORPUSCULAR HEMOGLOBIN 31.7 pg (31.6-35.5); MEAN CORPUSCULAR HGB CONC 35.3 g/dL (31.6-35.5); MEAN CORPUSCULAR VOLUME 89.7 fL (81.4-99.0); PLATELET COUNT,PLT 78 K/uL (130-375); RED BLOOD CELL COUNT 4.48 M/uL (4.14-5.76); WHITE BLOOD CELL COUNT,WBC 7.5 K/uL (3.2-11.0)
[2023-06-06 04:57] LABS: CALCIUM 8.4 mg/dL (8.5-10.1); CREATININE 1.3 mg/dL (0.8-1.3); EST CRCL DRUG DOSING (CG) 61.35 mL/min; POTASSIUM,K 3.8 mmol/L (3.6-5.2)
[2023-06-06 05:00] LABS: ATYPICAL LYMPHOCYTES RARE; BAND ABSOLUTE MAN 0.38 K/uL; BAND PERCENT MAN 5 % (5-11); LYMPHOCYTES PERCENT MAN 8 % (24-44); MONOCYTES ABSOLUTE MAN 0.45 K/uL (0.20-0.90); MONOCYTES PERCENT MAN 6 % (2-6); NEUTROPHILS ABSOLUTE MAN 6.08 K/uL (1.0-7.6); SEG NEUTROPHILS PERCENT MAN 81 % (36-66)
[2023-06-06 05:06] LABS: ANION GAP 12.8 mmol/L (5.0-14.0)
[2023-06-06] MEDS: Albuterol/Ipratropium 3.0-0.5 MG/3 ML Neb Soln NEB SCH (07:20)
[2023-06-06] MEDS: Insulin Lispro 100 Unit/ML 3 ML KwikPen SUBCUT SCH (07:43)
[2023-06-06] MEDS: Aspirin 81 MG Tab.Chew PO SCH (09:27)
[2023-06-06] MEDS: Lactobacillus Rhamnosus GG (Probiotic) Cap PO SCH (09:27)
[2023-06-06] MEDS: Cefdinir 300 MG Cap PO SCH (09:27)
[2023-06-06] MEDS: Furosemide 20 MG Tab PO SCH (09:28)
[2023-06-06] MEDS: predniSONE 20 MG Tab PO SCH (09:28)
[2023-06-06] MEDS: metFORMIN 500 MG Tab PO SCH (09:28)
[2023-06-06] MEDS: Sacubitril/Valsartan 24 MG-26 MG Tab PO SCH (09:28)
[2023-06-06] MEDS: DULoxetine 30 MG Cap PO SCH (09:29)
[2023-06-06] MEDS: OLANZapine 5 MG Tab PO SCH (09:29)
[2023-06-06] MEDS: Escitalopram 10 MG Tab PO SCH (09:29)
[2023-06-06] MEDS: Metoprolol Succinate 25 MG Tab.ER PO SCH (09:30)
[2023-06-06] MEDS ORDERED: Levofloxacin 250 MG Tab PO SCH (09:30)
== END 2023-06-06 11:30 | disposition home or self-care (01) | DRG 189 ==
LOC: JP.ED 07:09 → JP.MS 13:50
PROVIDERS: ADMIT Internal Medicine; ATTEND Internal Medicine
DX: J96.01 Acute respiratory failure with hypoxia (principal); I50.42 Chronic combined systolic (congestive) and diastolic (congestive) heart failure; J20.9 Acute bronchitis, unspecified; R09.02 Hypoxemia; E11.65 Type 2 diabetes mellitus with hyperglycemia; Z20.822 Contact with and (suspected) exposure to COVID-19; I11.0 Hypertensive heart disease with heart failure; I50.9 Heart failure, unspecified; E11.9 Type 2 diabetes mellitus without complications; F41.0 Panic disorder [episodic paroxysmal anxiety]; E78.00 Pure hypercholesterolemia, unspecified; Z79.84 Long term (current) use of oral hypoglycemic drugs; F31.9 Bipolar disorder, unspecified; E66.9 Obesity, unspecified; Z88.0 Allergy status to penicillin; Z88.8 Allergy status to other drugs, medicaments and biological substances; Z86.16 Personal history of COVID-19; Z99.81 Dependence on supplemental oxygen; Z68.33 Body mass index [BMI] 33.0-33.9, adult; Z98.890 Other specified postprocedural states; Z79.4 Long term (current) use of insulin; Z79.82 Long term (current) use of aspirin; Z79.899 Other long term (current) drug therapy
CPT/HCPCS: 36415; 71046 ×2; 71275 ×2; 80053; 81001; 83605; 83880; 84145; 84484; 85025; 85379; 86140; 93005; 93010; 96374; 99285 ×2; J1940; J3490 ×3; Q9967; U0002; 80048; 82947; 85027; 94640; 99222; 99232; 99238; A9270-GY; J0696; J1650; J1815; J1815-GY; J7512; J7620

== ENCOUNTER 2024-05-04 08:03 | Day surgery (SDC) | payer MEDICARE, OTHER ==
[2024-05-04] MEDS: Sodium Chloride 0.9% 10 ML Syringe FLUSH PRN (08:45)
== END 2024-05-04 09:45 | disposition home or self-care (01) ==
LOC: JP.SDS 08:03
PROVIDERS: ATTEND Ophthalmology
DX: E11.36 Type 2 diabetes mellitus with diabetic cataract (principal); H25.11 Age-related nuclear cataract, right eye; H25.041 Posterior subcapsular polar age-related cataract, right eye; I11.0 Hypertensive heart disease with heart failure; I50.9 Heart failure, unspecified; E66.9 Obesity, unspecified
CPT/HCPCS: 66984; J3490; V2632

== ENCOUNTER 2024-06-01 07:55 | Day surgery (SDC) | payer MEDICARE, OTHER ==
[2024-06-01] MEDS: Sodium Chloride 0.9% 10 ML Syringe FLUSH ONE (08:34)
== END 2024-06-01 09:53 | disposition home or self-care (01) ==
LOC: JP.SDS 07:55
PROVIDERS: ATTEND Ophthalmology
DX: E11.36 Type 2 diabetes mellitus with diabetic cataract (principal); H25.12 Age-related nuclear cataract, left eye; I50.9 Heart failure, unspecified
CPT/HCPCS: 66984; J3490